=== PATIENT | male | born 1945 | race Caucasian/White ===

== ENCOUNTER → 2019-01-09 13:31 | Outpatient (CLI) | payer OTHER, SELFPAY ==
--- NOTE | 2019-01-09 | DI.ECHO.S_ITS ---
[facility] +---------+ [facility] +---------+ : : [address] : : : : [id number] : : : : Phone: [phone]+ Echocardiogram Report + + :Name: MATTHEW GOINS Study Date: 01/09/2019 Height: 72 in : :[facility] Weight: 204 lb: : Gender: Male BSA: 2.1 m2 : :: 1945 Age: 73 yrs BP: 10/60 mmHg: :Reason For Study: Atrial fibrillation - paroxysmal : :Ordering Physician: Rupert : :Santy Morrow Performed By: Yumi Page : + + Interpretation Summary Left ventricular wall thickness is borderline increased. Left ventricular systolic function is normal without focal wall motion abnormalities. The ejection fraction is estimated to be 60-65%. Diastolic parameters suggest a relaxation abnormality of the left ventricle, consistent with probable normal filling pressures. The right ventricle is normal in size and function. The right ventricular systolic pressure is estimated to be at least 27 mmHg based on an estimated right atrial pressure of 3 mm Hg. The left atrium is mildly dilated. The right atrium is normal in size. There is no significant valvular heart disease. The aortic root is mildly dilated. The ascending aorta is moderately enlarged. Procedure: A two-dimensional transthoracic echocardiogram with color flow and Doppler was performed. The study quality was technically good. There is no prior echocardiogram noted for this patient. The heart rate ranged between 67- 74 bpm during the study. The patient had frequent PACs during the exam. Left Ventricle: Left ventricular wall thickness is borderline increased. The left ventricle is normal in size. Left ventricular systolic function is normal without focal wall motion abnormalities. The ejection fraction is estimated to be 60-65%. Diastolic parameters suggest a relaxation abnormality of the left ventricle, consistent with probable normal filling pressures. Right Ventricle: The right ventricle is normal in size and function. Atria: The left atrium is mildly dilated. The right atrium is normal in size. There is no Doppler evidence for an interatrial shunt. The interatrial septum bows toward left atrium consistent with elevated right atrial pressure. Mitral Valve: The mitral valve is normal in structure and function. There is trace mitral regurgitation. Aortic Valve: The aortic valve is trileaflet. The aortic valve opens well. No aortic regurgitation is present. Tricuspid Valve: The tricuspid valve is normal in structure but is abnormal in function. There is trace tricuspid regurgitation. The right ventricular systolic pressure is estimated to be at least 27 mmHg based on an estimated right atrial pressure of 3 mm Hg. Pulmonic Valve: The pulmonic valve is not well seen, but is grossly normal. There is a trace or physiologic amount of pulmonic regurgitation. There is no significant valvular heart disease. Great Vessels: The aortic root is mildly dilated. The ascending aorta is moderately enlarged. The pulmonary artery is not well visualized, but is probably normal size. The IVC is of normal diameter and collapses greater than 50% with a sniff. This suggests a low right atrial pressure of 3 mm Hg. Pericardium/ Pleura There is no pericardial effusion. There is no pleural effusion. MMode/2D Measurements & Calculations LVIDd: 4.5 cm LVOT diam: 2.4 cm LVIDs: 3.0 cm Ao root diam: 4.1 cm FS: 33.2 % asc Aorta Diam: 4.3 cm EPSS: 0.40 cm IVSd: 0.85 cm LVPWd: 1.1 cm LV lawrence. diameter/BSA (cm/m^2): 2.1 LV sys. diameter/BSA (cm/m^2): 1.4 LA A2 area: 21.0 cm2 RA long axis: 5.7 cm LA A4 area: 23.0 cm2 RA area: 19.2 cm2 LA length (vol): 5.2 cm RA vol: 55.2 ml LA vol: 78.6 ml RA : 25.7 ml/m2 LA vol index: 36.6 ml/m2 RVD1 (basal): 3.8 cm Doppler Measurements & Calculations Ao V2 max: 136.8 cm/sec LVOT Max Manuel: 91.1 cm/sec Ao V2 mean: 96.7 cm/sec LV V1 max P.3 mmHg Ao max P.5 mmHg LV V1 VTI: 17.0 cm Ao mean P.1 mmHg NANCY(I,D): 3.5 cm2 Ao V2 VTI: 22.5 cm NANCY(V,D): 3.1 cm2 sev ratio: 0.76 NANCY indexed to BSA (cm^2/m^2): 1.6 MV E max manuel: 60.9 cm/sec TR max manuel: 244.2 cm/sec MV A max manuel: 72.0 cm/sec TR max P.9 mmHg MV E/A: 0.85 PA V2 max: 82.2 cm/sec Med Peak E' Manuel: 4.1 cm/sec PA V2 mean: 49.0 cm/sec E/E' med: 14.8 PA mean P.2 mmHg Lat Peak E' Manuel: 8.2 cm/sec PA Accel Time: 0.11 sec E/E' lat: 7.4 E/e' average: 11.1 MV dec time: 0.28 sec MV P1/2t: 81.6 msec MV P1/2t max manuel: 60.5 cm/sec SV(LVOT): 78.1 ml MVA(P1/2t): 2.7 cm2 Reading Physician:05:43 PM
== END ==
PROVIDERS: Visit Provider Internal Medicine Cardiovascular Disease
DX: I48.0 Paroxysmal atrial fibrillation (principal); I77.89 Other specified disorders of arteries and arterioles
CPT/HCPCS: 93306